=== PATIENT | male | born 1965 | race Caucasian/White ===

== ENCOUNTER 2022-06-04 22:08 | Inpatient (IN) ==
[2022-06-05] MEDS ORDERED: Iopamidol - 370 500 ML MLS IVP ONE (01:46)
[2022-06-05 03:32] LABS: Basophils % 0.3 %; Eosinophils # 0.1 K/mcL (0.0-0.6); Eosinophils % 1.5 %; Hematocrit 32.4 % (37.5-50.1); Hemoglobin 11.1 g/dL (12.9-16.9); Immature Granulocytes % 0.3 % (0-4); Lymphocytes # 1.9 K/mcL (0.6-4.6); Lymphocytes % 19.5 %; Mean Corpuscular HGB Conc 34.3 g/dL (31.6-35.5); Mean Corpuscular Hemoglobin 29.6 pg (28.0-33.3); Mean Corpuscular Volume 86.4 fL (83.0-100.0); Mean Platelet Volume 9.4 fL (9.4-12.4); Monocytes % 10.3 %; Neutrophils # 6.6 K/mcL (1.6-8.9); Platelet Count 294 K/mcL (140-400); Red Blood Count 3.75 M/mcL (4.19-5.50); Red Cell Distribution Width 11.6 % (11.5-14.5); Segmented Neutrophils % 68.1 %; White Blood Count 9.7 K/mcL (4.3-11.1)
[2022-06-05 03:47] LABS: BUN/Creatinine Ratio 16 (6-26); Blood Urea Nitrogen 11 mg/dL (6-20); Calcium 9.5 mg/dL (8.6-10.3); Carbon Dioxide 30 mEq/L (23-29); Chloride 99 mEq/L (98-107); Glucose 110 mg/dL (70-105); Osmolality,Calculated 282 (280-300); Sodium 136 mEq/L (136-145)
[2022-06-05] MEDS ORDERED: *HR* Dextrose 50 % in Water (Syg) 50 ML SYRINGE IVP PRN (10:59)
[2022-06-05] MEDS ORDERED: D5% in Water 1,000 ML IVC PRN (10:59)
[2022-06-05] MEDS ORDERED: Dextrose Gel 15 GM/37.5 ML TUBE PO PRN ×2 (10:59)
[2022-06-05] MEDS ORDERED: Naloxone 0.4 MG/ML INJ IVP PRN (10:59)
[2022-06-05] MEDS: Insulin LISPRO 300 UNITS/3 ML VIAL SUBQ SCH ×3 (13:05→21:00)
[2022-06-05 16:31] LABS: Estimated Average Glucose 140 mg/dl; Hemoglobin A1C 6.5 %
[2022-06-05] MEDS: Vancomycin 1,500 MG/265 ML IV.SOLN IVPB SCH (16:57)
[2022-06-06 02:14] LABS: Basophils % 0.4 %; Eosinophils # 0.3 K/mcL (0.0-0.6); Eosinophils % 3.6 %; Hematocrit 31.9 % (37.5-50.1); Hemoglobin 10.8 g/dL (12.9-16.9); Immature Granulocytes % 0.6 % (0-4); Lymphocytes # 1.8 K/mcL (0.6-4.6); Lymphocytes % 25.5 %; Mean Corpuscular HGB Conc 33.9 g/dL (31.6-35.5); Mean Corpuscular Hemoglobin 29.3 pg (28.0-33.3); Mean Corpuscular Volume 86.7 fL (83.0-100.0); Mean Platelet Volume 9.4 fL (9.4-12.4); Monocytes # 0.8 K/mcL (0.0-1.3); Monocytes % 10.6 %; Neutrophils # 4.3 K/mcL (1.6-8.9); Platelet Count 289 K/mcL (140-400); Red Blood Count 3.68 M/mcL (4.19-5.50); Red Cell Distribution Width 11.7 % (11.5-14.5); Segmented Neutrophils % 59.3 %; White Blood Count 7.2 K/mcL (4.3-11.1)
[2022-06-06 02:33] LABS: BUN/Creatinine Ratio 17 (6-26); Blood Urea Nitrogen 11 mg/dL (6-20); Carbon Dioxide 30 mEq/L (23-29); Chloride 102 mEq/L (98-107); Glucose 119 mg/dL (70-105); Osmolality,Calculated 289 (280-300); Potassium 4.1 mEq/L (3.5-5.1); Sodium 139 mEq/L (136-145)
[2022-06-06] MEDS: Vancomycin 1,500 MG/265 ML IV.SOLN IVPB SCH ×2 (04:28→16:48)
[2022-06-06] MEDS: Piperacillin/Tazobactam 3.375 GM in 0.9 % Sodium Chloride Mini Bag 100 ML IVPB SCH ×3 (08:01→23:31)
[2022-06-06] MEDS: lisinopriL 5 MG TABLET PO SCH (08:01)
[2022-06-06] MEDS: Insulin LISPRO 300 UNITS/3 ML VIAL SUBQ SCH ×4 (08:08→22:53)
[2022-06-06] MEDS ORDERED: (Omega-3/Dha/Epa/Fish Oil [Fish Oil 1,000 Mg Softgel] PO SCH (09:00)
[2022-06-06] MEDS: *HR* Heparin 5,000 UNIT/ML VIAL SQ SCH (17:01)
[2022-06-06] MEDS ORDERED: Piperacillin/Tazobactam 3.375 GM in 0.9 % Sodium Chloride Mini Bag 100 ML IVPB ONE (18:00)
[2022-06-06] MEDS ORDERED: *HR* Midazolam HCl 2 MG/2 ML VIAL ONE (19:13)
[2022-06-06] MEDS ORDERED: *HR* FentaNYL (PF) 100 MCG/2 ML VIAL ONE (19:13)
[2022-06-06] MEDS ORDERED: *HR* Heparin 10,000 UNIT/10 ML VIAL ONE (19:14)
[2022-06-06] MEDS ORDERED: Heparin 1,000 UNITS/500 mL 500 ML ONE ×2 (19:14→20:46)
[2022-06-06] MEDS ORDERED: 0.9 % Sodium Chloride 2,000 ML ONE (19:14)
[2022-06-06] MEDS ORDERED: Iopamidol - 300 100 ML INFUS..BTL ONE (19:15)
[2022-06-06] MEDS ORDERED: Ondansetron 4 MG/2 ML VIAL IVP PRN (21:28)
[2022-06-06] MEDS ORDERED: *HR* HYDROcodone/Acet 5/325 mg TABLET PO PRN (21:28)
[2022-06-06] MEDS ORDERED: Acetaminophen 325 MG TABLET PO PRN (21:28)
[2022-06-07] MEDS: Vancomycin 1,500 MG/265 ML IV.SOLN IVPB SCH (04:22)
[2022-06-07 04:38] LABS: Basophils % 0.6 %; Eosinophils # 0.2 K/mcL (0.0-0.6); Eosinophils % 2.5 %; Hematocrit 33.1 % (37.5-50.1); Immature Granulocytes % 0.3 % (0-4); Lymphocytes # 1.7 K/mcL (0.6-4.6); Lymphocytes % 25.3 %; Mean Corpuscular HGB Conc 33.2 g/dL (31.6-35.5); Mean Corpuscular Hemoglobin 29.3 pg (28.0-33.3); Mean Corpuscular Volume 88.3 fL (83.0-100.0); Monocytes # 0.5 K/mcL (0.0-1.3); Neutrophils # 4.3 K/mcL (1.6-8.9); Platelet Count 323 K/mcL (140-400); Red Blood Count 3.75 M/mcL (4.19-5.50); Red Cell Distribution Width 11.8 % (11.5-14.5); Segmented Neutrophils % 63.3 %; White Blood Count 6.8 K/mcL (4.3-11.1)
[2022-06-07 04:53] LABS: BUN/Creatinine Ratio 12 (6-26); Blood Urea Nitrogen 10 mg/dL (6-20); Calcium 8.7 mg/dL (8.6-10.3); Carbon Dioxide 29 mEq/L (23-29); Chloride 105 mEq/L (98-107); Glucose 103 mg/dL (70-105); Magnesium 1.7 mg/dL (1.6-2.6); Osmolality,Calculated 287 (280-300); Phosphorous 3.8 mg/dL (2.7-4.5); Potassium 3.8 mEq/L (3.5-5.1); Sodium 139 mEq/L (136-145)
[2022-06-07] MEDS: *HR* Heparin 5,000 UNIT/ML VIAL SQ SCH ×2 (05:40→17:51)
[2022-06-07] MEDS: Insulin LISPRO 300 UNITS/3 ML VIAL SUBQ SCH ×4 (07:39→21:08)
[2022-06-07] MEDS: Piperacillin/Tazobactam 3.375 GM in 0.9 % Sodium Chloride Mini Bag 100 ML IVPB SCH (09:04)
[2022-06-07] MEDS: lisinopriL 5 MG TABLET PO SCH (09:09)
[2022-06-07] MEDS ORDERED: Gadolinium Contrast Agent (WT Based) IV PRN (14:07)
[2022-06-07] MEDS: ceFAZolin 2,000 MG in 0.9 % Sodium Chloride 100 ML IVPB SCH ×2 (15:10→23:57)
[2022-06-07] MEDS: MetroNIDAZOLE 500 MG/100 ML 500 MG/100 ML BAG IVPB SCH ×2 (15:11→23:58)
[2022-06-08 01:44] LABS: Hematocrit 31.4 % (37.5-50.1); Hemoglobin 10.5 g/dL (12.9-16.9); Mean Corpuscular HGB Conc 33.4 g/dL (31.6-35.5); Mean Corpuscular Hemoglobin 29.4 pg (28.0-33.3); Mean Platelet Volume 9.1 fL (9.4-12.4); Platelet Count 309 K/mcL (140-400); Red Blood Count 3.57 M/mcL (4.19-5.50); Red Cell Distribution Width 11.5 % (11.5-14.5); White Blood Count 7.8 K/mcL (4.3-11.1)
[2022-06-08 02:00] LABS: BUN/Creatinine Ratio 13 (6-26); Blood Urea Nitrogen 10 mg/dL (6-20); Calcium 8.4 mg/dL (8.6-10.3); Carbon Dioxide 29 mEq/L (23-29); Chloride 105 mEq/L (98-107); Glucose 124 mg/dL (70-105); Magnesium 1.7 mg/dL (1.6-2.6); Osmolality,Calculated 288 (280-300); Potassium 3.8 mEq/L (3.5-5.1); Sodium 139 mEq/L (136-145)
[2022-06-08] MEDS: *HR* Heparin 5,000 UNIT/ML VIAL SQ SCH ×2 (05:16→17:10)
[2022-06-08] MEDS: Insulin LISPRO 300 UNITS/3 ML VIAL SUBQ SCH ×4 (08:58→21:02)
[2022-06-08] MEDS: lisinopriL 5 MG TABLET PO SCH (09:08)
[2022-06-08] MEDS: ceFAZolin 2,000 MG in 0.9 % Sodium Chloride 100 ML IVPB SCH ×3 (09:09→23:40)
[2022-06-08] MEDS: MetroNIDAZOLE 500 MG/100 ML 500 MG/100 ML BAG IVPB SCH ×3 (09:13→23:39)
[2022-06-09 03:26] LABS: Hemoglobin 10.7 g/dL (12.9-16.9); Mean Corpuscular HGB Conc 33.4 g/dL (31.6-35.5); Mean Corpuscular Volume 86.7 fL (83.0-100.0); Platelet Count 321 K/mcL (140-400); Red Blood Count 3.69 M/mcL (4.19-5.50); Red Cell Distribution Width 11.5 % (11.5-14.5); White Blood Count 7.7 K/mcL (4.3-11.1)
[2022-06-09 03:43] LABS: BUN/Creatinine Ratio 16 (6-26); Blood Urea Nitrogen 13 mg/dL (6-20); Calcium 8.6 mg/dL (8.6-10.3); Carbon Dioxide 29 mEq/L (23-29); Chloride 104 mEq/L (98-107); Glucose 121 mg/dL (70-105); Magnesium 1.8 mg/dL (1.6-2.6); Osmolality,Calculated 289 (280-300); Potassium 3.8 mEq/L (3.5-5.1); Sodium 139 mEq/L (136-145)
[2022-06-09] MEDS: *HR* Heparin 5,000 UNIT/ML VIAL SQ SCH ×3 (06:02→18:17)
[2022-06-09] MEDS: Insulin LISPRO 300 UNITS/3 ML VIAL SUBQ SCH ×3 (08:09→20:25)
[2022-06-09] MEDS: lisinopriL 5 MG TABLET PO SCH (08:09)
[2022-06-09] MEDS: ceFAZolin 2,000 MG in 0.9 % Sodium Chloride 100 ML IVPB SCH ×2 (08:17→17:02)
[2022-06-09] MEDS: MetroNIDAZOLE 500 MG/100 ML 500 MG/100 ML BAG IVPB SCH ×2 (08:18→17:01)
[2022-06-09] MEDS ORDERED: Ringers Solution, Lactated 1,000 ML IVC SCH (14:30)
[2022-06-09] MEDS ORDERED: *HR* FentaNYL (PF) 100 MCG/2 ML VIAL IVP PRN ×2 (14:31→17:07)
[2022-06-09] MEDS ORDERED: Ondansetron 4 MG/2 ML VIAL ONE (14:40)
[2022-06-09] MEDS ORDERED: *HR* Midazolam HCl 2 MG/2 ML VIAL ONE (14:40)
[2022-06-09] MEDS ORDERED: *HR* FentaNYL (PF) 100 MCG/2 ML VIAL ONE (14:40)
[2022-06-09] MEDS ORDERED: Lidocaine -MPF 2% 5 ML VIAL ONE (14:40)
[2022-06-09] MEDS ORDERED: *HR* Propofol 200 MG/20 ML VIAL IVP ONE (14:41)
[2022-06-09] MEDS ORDERED: Lidocaine 1% 20 ML MDV ONE (15:00)
[2022-06-09] MEDS ORDERED: *HR* HYDROcodone/Acet 5/325 mg TABLET PO PRN (17:07)
[2022-06-09] MEDS ORDERED: Ondansetron 4 MG/2 ML VIAL IVP PRN (17:07)
[2022-06-09] MEDS ORDERED: Acetaminophen 325 MG TABLET PO PRN (17:07)
[2022-06-09] MEDS ORDERED: Naloxone 0.4 MG/ML INJ IVP PRN (17:07)
[2022-06-09] MEDS ORDERED: *HR* Dextrose 50 % in Water (Syg) 50 ML SYRINGE IVP PRN (17:07)
[2022-06-09] MEDS ORDERED: Dextrose Gel 15 GM/37.5 ML TUBE PO PRN ×2 (17:07)
[2022-06-09] MEDS ORDERED: Gadolinium Contrast Agent (WT Based) IV PRN (17:07)
[2022-06-09] MEDS ORDERED: D5% in Water 1,000 ML IVC PRN (17:07)
[2022-06-09] MEDS: Ringers Solution, Lactated 1,000 ML IVC SCH (18:17)
[2022-06-10] MEDS ORDERED: ceFAZolin 2,000 MG in 0.9 % Sodium Chloride 100 ML IVPB SCH
[2022-06-10] MEDS: MetroNIDAZOLE 500 MG/100 ML 500 MG/100 ML BAG IVPB SCH ×4 (00:54→23:03)
[2022-06-10] MEDS: CeFAZolin 2,000 MG/120 ML BAG IVPB SCH ×3 (00:57→17:04)
[2022-06-10 04:37] LABS: Hematocrit 34.1 % (37.5-50.1); Hemoglobin 11.6 g/dL (12.9-16.9); Mean Corpuscular Hemoglobin 29.5 pg (28.0-33.3); Mean Corpuscular Volume 86.8 fL (83.0-100.0); Mean Platelet Volume 9.1 fL (9.4-12.4); Platelet Count 338 K/mcL (140-400); Red Blood Count 3.93 M/mcL (4.19-5.50); Red Cell Distribution Width 11.5 % (11.5-14.5); White Blood Count 10.8 K/mcL (4.3-11.1)
[2022-06-10 04:57] LABS: BUN/Creatinine Ratio 17 (6-26); Blood Urea Nitrogen 14 mg/dL (6-20); Calcium 8.8 mg/dL (8.6-10.3); Carbon Dioxide 26 mEq/L (23-29); Chloride 103 mEq/L (98-107); Glucose 147 mg/dL (70-105); Magnesium 1.8 mg/dL (1.6-2.6); Osmolality,Calculated 287 (280-300); Potassium 4.2 mEq/L (3.5-5.1); Sodium 137 mEq/L (136-145)
[2022-06-10] MEDS: *HR* Heparin 5,000 UNIT/ML VIAL SQ SCH ×2 (06:37→17:05)
[2022-06-10] MEDS: Insulin LISPRO 300 UNITS/3 ML VIAL SUBQ SCH ×4 (07:36→20:18)
[2022-06-10] MEDS: lisinopriL 5 MG TABLET PO SCH (07:47)
[2022-06-10] MEDS: Ringers Solution, Lactated 1,000 ML IVC SCH (17:04)
[2022-06-11] MEDS: CeFAZolin 2,000 MG/120 ML BAG IVPB SCH ×2 (00:03→08:44)
[2022-06-11 02:41] LABS: Hematocrit 31.2 % (37.5-50.1); Hemoglobin 10.6 g/dL (12.9-16.9); Mean Corpuscular Hemoglobin 29.3 pg (28.0-33.3); Mean Corpuscular Volume 86.2 fL (83.0-100.0); Platelet Count 289 K/mcL (140-400); Red Blood Count 3.62 M/mcL (4.19-5.50); Red Cell Distribution Width 11.8 % (11.5-14.5); White Blood Count 8.5 K/mcL (4.3-11.1)
[2022-06-11 02:58] LABS: BUN/Creatinine Ratio 26 (6-26); Blood Urea Nitrogen 20 mg/dL (6-20); Calcium 8.2 mg/dL (8.6-10.3); Carbon Dioxide 28 mEq/L (23-29); Chloride 104 mEq/L (98-107); Glucose 158 mg/dL (70-105); Magnesium 1.7 mg/dL (1.6-2.6); Osmolality,Calculated 290 (280-300); Potassium 3.9 mEq/L (3.5-5.1); Sodium 137 mEq/L (136-145)
[2022-06-11] MEDS: *HR* Heparin 5,000 UNIT/ML VIAL SQ SCH (05:30)
[2022-06-11] MEDS: Insulin LISPRO 300 UNITS/3 ML VIAL SUBQ SCH ×2 (08:43→12:32)
[2022-06-11] MEDS: MetroNIDAZOLE 500 MG/100 ML 500 MG/100 ML BAG IVPB SCH (08:44)
[2022-06-11] MEDS: lisinopriL 5 MG TABLET PO SCH (08:45)
[2022-06-11 12:05] VITALS: BP 143/73; PULSE 66; TEMP 98.4; O2SAT 98
== END 2022-06-11 14:06 | disposition home health service (06) | DRG 253 ==
LOC: EMEROOARM 22:08 → 3ANU 22:08 → SUATTDRO 06-05 10:39 → 3ANU 06-05 12:02 → 2NNU 06-06 21:00 → 3ANU 06-06 21:59 → SUATTDRO 06-07 16:49
PROVIDERS: ADMIT Internal Medicine; ATTEND Internal Medicine